=== PATIENT | male | born 1950 | race Caucasian/White ===

== ENCOUNTER 2016-08-22 19:28 | Inpatient (IN) | payer BC ==
[~2016-08-22] VITALS: Ht 172.7 cm; Wt 93.8 kg
[~2016-08-22 19:28] MED LIST: ASPI325T39 PO; VERA120T8 PO
[2016-08-22] MEDS ORDERED: FAMOTIDINE 20MG/102 ML D5W IV STA (19:39)
[2016-08-22] MEDS ORDERED: SODIUM CHLORIDE 0.9% 1000ML 1,000 ML IV STA (19:39)
[2016-08-22] MEDS ORDERED: ONDANSETRON INJ 2 MG/ML 2 ML VIAL IV STA (19:39)
[2016-08-22] MEDS ORDERED: PANTOprazole INJ 40 MG in SYRINGE 0 ML IV ONE (19:45)
--- NOTE | 2016-08-22 19:58 | EMERGENCY ROOM VISIT NOTE ---
History Report prepared by Vicki: Sukhwinder Dunham Under the Supervision of: Dr. Olivier Liu D.O. First contact with patient: 19:33 Chief Complaint: CHEST PAIN Stated Complaint: CHEST/ABD PAIN History of Present Illness The patient is a 66 year old male who presents to the Emergency Room with complaints of constant abdominal discomfort for the pasts few days. The patient describes the discomfort as sharp and severe. He notes that it has been worsening over the past few days. The discomfort is worsened by eating and walking. He also complains of nausea. The patient denies vomiting, shortness of breath, chest pain, or back pain at this time. Source of History: patient Onset: the past few days Position: abdomen Symptom Intensity: severe Quality: sharp Timing: constant, worsening Modifying Factors (Worsening): eating, movement (walking) Associated Symptoms: + nausea, No SOB, No back pain, No chest pain, No vomiting Review of Systems See HPI for pertinent positives & negatives. A total of 10 systems reviewed and were otherwise negative. Past Medical & Surgical Medical Problems: (1) HEADACHE Family History FH: cancer FH: diabetes mellitus FH: gallbladder disease FH: heart disease FH: hypertension Social History Smoking Status: Never Smoker Alcohol Use: occasionally Drug Use: none Marital Status: Housing Status: lives with family Occupation Status: employed Current/Historical Medications Scheduled Ranitidine HCl (Zantac), 150 MG PO DAILY Tamsulosin HCl (Tamsulosin HCl), 0.4 MG PO DAILY Scheduled PRN Aspirin (Aspirin Ec), 325 MG PO UD PRN for Headache Allergies Coded Allergies: No Known Allergies (Verified , 11/16/14) Physical Exam Vital Signs Date Time Temp Pulse Resp B/P Pulse Ox O2 Delivery O2 Flow Rate FiO2 08/22/16 23:49 37.8 116 18 93 Room Air 08/22/16 22:36 38.3 113 18 104/74 92 Room Air 08/22/16 21:40 114 08/22/16 21:33 38.6 113 20 137/86 95 Room Air 08/22/16 19:30 37.3 120 18 169/95 96 Room Air Physical Exam GENERAL: Patient is awake alert in no acute distress patient is resting comfortably and showing no signs of anxiety EYES: The conjunctivae are clear. The pupils are round and reactive. EARS, NOSE, MOUTH AND THROAT: The nose is without any evidence of any deformity. Mucous membranes are moist tongue is midline NECK: The neck is nontender and supple. RESPIRATORY: Normal respiratory effort is noted there is no evidence of wheezing rhonchi or rales CARDIOVASCULAR: Tachycardic rate with regular rhythm noted to oscillation. No definite murmur appreciated. GASTROINTESTINAL: The abdomen is moderately distended but soft. Significant RUQ tenderness to palpation. No lower abdominal tenderness noted. BACK: No midline tenderness or or step-off noted range of motion in flexion extension as well as rotation no signs of muscle spasm noted MUSCULOSKELETAL/EXTREMITIES: There is no evidence of gross deformity full range of motion is noted in the hips and shoulders SKIN: There is no obvious evidence of any rash. There are no petechiae, pallor or cyanosis noted. NEUROLOGIC: Patient is awake alert and oriented x3 Medical Decision & Procedures ER Provider Diagnostic Interpretation: Radiology results as stated below per my review and radiologist interpretation: ABDOMINAL ULTRASOUND, RIGHT UPPER QUADRANT HISTORY: Right upper quadrant abdominal pain.. COMPARISON: Abdominal ultrasound 11/21/2015. FINDINGS: Pancreas: Obscured by overlying bowel gas. Liver: The liver is echogenic consistent with fatty change. Gallbladder: Sludge and small stones within the gallbladder. Gallbladder wall is thickened up to 6 mm. CBD: 6 mm. Right kidney: No hydronephrosis. IMPRESSION: Thickened gallbladder wall with sludge and small stones within the gallbladder. Findings are highly suspicious for acute cholecystitis. Electronically signed by: Omar Hernandez M.D. 08/22/2016 9:29 PM Dictated Date/Time: 08/22/2016 9:27 PM CHEST AND ABDOMEN 2 VIEWS HISTORY: Generalized abdominal pain. COMPARISON: KUB 06/11/2012. Chest 05/26/2012. FINDINGS: The lungs are clear. The cardiomediastinal silhouette is within normal limits. There is no pneumoperitoneum or pneumatosis. The bowel gas pattern is unremarkable. No evidence for bowel obstruction. No renal or ureteral calculi. Stable pelvic calcifications. IMPRESSION: No acute cardiopulmonary process. No evidence for bowel obstruction. Electronically signed by: Omar Hernandez M.D. 08/22/2016 8:53 PM Dictated Date/Time: 08/22/2016 8:51 PM Laboratory Results 08/22/16 19:52 Red Blood Count 5.10, Mean Corpuscular Volume 86.1, Mean Corpuscular Hemoglobin 29.4, Mean Corpuscular Hemoglobin Concent 34.2, Mean Platelet Volume 10.1, Neutrophils (%) (Auto) 83.4, Lymphocytes (%) (Auto) 8.2, Monocytes (%) (Auto) 6.6, Eosinophils (%) (Auto) 1.2, Basophils (%) (Auto) 0.3, Neutrophils # (Auto) 9.48, Lymphocytes # (Auto) 0.93, Monocytes # (Auto) 0.75, Eosinophils # (Auto) 0.14, Basophils # (Auto) 0.03 08/22/16 19:52 Test 08/22/16 19:52 08/22/16 23:45 White Blood Count 11.36 K/uL (4.8-10.8) Red Blood Count 5.10 M/uL (4.7-6.1) Hemoglobin 15.0 g/dL (14.0-18.0) Hematocrit 43.9 % (42-52) Mean Corpuscular Volume 86.1 fL (80-100) Mean Corpuscular Hemoglobin 29.4 pg (25-34) Mean Corpuscular Hemoglobin Concent 34.2 g/dl (32-36) Platelet Count 238 K/uL (130-400) Mean Platelet Volume 10.1 fL (7.4-10.4) Neutrophils (%) (Auto) 83.4 % Lymphocytes (%) (Auto) 8.2 % Monocytes (%) (Auto) 6.6 % Eosinophils (%) (Auto) 1.2 % Basophils (%) (Auto) 0.3 % Neutrophils # (Auto) 9.48 K/uL (1.4-6.5) Lymphocytes # (Auto) 0.93 K/uL (1.2-3.4) Monocytes # (Auto) 0.75 K/uL (0.11-0.59) Eosinophils # (Auto) 0.14 K/uL (0-0.5) Basophils # (Auto) 0.03 K/uL (0-0.2) RDW Standard Deviation 39.3 fL (36.4-46.3) RDW Coefficient of Variation 12.5 % (11.5-14.5) Immature Granulocyte % (Auto) 0.3 % Immature Granulocyte # (Auto) 0.03 K/uL (0.00-0.02) Prothrombin Time 10.7 SECONDS (9.0-12.0) Prothromb Time International Ratio 1.0 (0.9-1.1) Activated Partial Thromboplast Time 23.6 SECONDS (21.0-31.0) Partial Thromboplastin Ratio 0.9 Anion Gap 6.0 mmol/L (3-11) Est Creatinine Clear Calc Drug Dose 82.7 ml/min Estimated GFR () 91.8 Estimated GFR (Non- 79.2 BUN/Creatinine Ratio 12.3 (10-20) Calcium Level 8.8 mg/dl (8.5-10.1) Total Bilirubin 1.7 mg/dl (0.2-1) Direct Bilirubin 1.0 mg/dl (0-0.2) Aspartate Amino Transf (AST/SGOT) 234 U/L (15-37) Alanine Aminotransferase (ALT/SGPT) 338 U/L (12-78) Alkaline Phosphatase 220 U/L (45-117) Total Creatine Kinase 391 U/L (39-308) Creatine Kinase MB 1.2 ng/ml (0.5-3.6) Creatine Kinase MB Ratio 0.3 (0-3.0) Troponin I < 0.015 ng/ml (0-0.045) Total Protein 8.3 gm/dl (6.4-8.2) Albumin 4.2 gm/dl (3.4-5.0) Lipase 8944 U/L (73-393) Urine Color DK YELLOW Urine Appearance CLEAR (CLEAR) Urine pH 7.0 (4.5-7.5) Urine Specific [place] 1.018 (1.000-1.030) Urine Protein NEG (NEG) Urine Glucose (UA) NEG (NEG) Urine Ketones TRACE (NEG) Urine Occult Blood NEG (NEG) Urine Nitrite NEG (NEG) Urine Bilirubin NEG (NEG) Urine Urobilinogen NEG (NEG) Urine Leukocyte Esterase NEG (NEG) Laboratory results per my review. Medications Administered Medications (Trade) Dose Ordered Sig/[place] Route Start Time Stop Time Status Last Admin Dose Admin Ondansetron HCl 4 mg 4 mg NOW STAT IV 08/22/16 19:39 08/22/16 19:41 DC 08/22/16 19:52 4 MG Sodium Chloride (Nss 1000ml) 1,000 ml @ 999 mls/hr Q1H1M STAT IV 08/22/16 19:39 5/12/17 20:39 DC 08/22/16 19:53 999 MLS/HR Famotidine 20 mg 20 mg ONE STAT IV 08/22/16 19:39 08/22/16 19:41 DC 08/22/16 19:53 20 MG Pantoprazole Sodium/Syringe (Protonix Inj/ Syringe) 10 ml @ 5 mls/min NOW ONCE IV 08/22/16 19:45 08/22/16 19:46 DC 08/22/16 19:59 5 MLS/MIN Morphine Sulfate (MoRPHine SULFATE INJ) 4 mg Q15M PRN IV 08/22/16 21:00 09/05/16 20:59 08/22/16 21:38 4 MG Piperacillin Sod/ Tazobactam Sod (Zosyn Iv) 4.5 gm NOW STAT IV 08/22/16 21:34 08/22/16 21:36 DC 08/22/16 21:51 4.5 GM ECG Indication: abdominal pain Rate (beats per minute): 111 Rhythm: sinus tachycardia Findings: no ectopy, other (no acute ST segment abnormality) Comparison ECG Date: increased rate otherwise no change when compared to May 26. ED Course 1931: The patient was evaluated in room C11. A complete history and physical examination were performed. 1938: Ordered Famotidine 20 mg IV, NSS 1000 ml @ 999 mls/hr IV, Zofran Inj 4 mg IV. 1944: Ordered Pantoprazole Sodium 40 mg/ Syringe 10 ml @ 5 mls/min IV. 2099: Ordered Morphine Sulfate 4 mg IV. 2133: Ordered Zosyn Iv 4.5 gm IV. 2144: At this time, I discussed the patient's case with Dr. Harrington - General Surgery [facility] and he agreed with the treatment plan. He also said to discuss the patient's case with Medicine. 2230: At this time, I discussed the patient's case with Dr. Arredondo - Hospitalist [facility] and he agreed to accept the patient for further evaluation. Medical Decision Differential diagnosis: Etiologies such as appendicitis, diverticulitis, PUD, biliary pathology, UTI, pancreatitis, obstruction, mesenteric ischemia, aortic pathology, infections, inflammatory bowel disease, renal colic, as well as others were entertained. Nursing notes reviewed. Patient's previous electronic medical records reviewed. The patient is a 66-year-old male who presented to the emergency department for an evaluation of upper abdominal pain. The patient had upper abdominal pain which began earlier today. The patient states the pain was constant throughout the day. The patient had pain in the past similar to this In the past. Apparently he had a complete workup including a HIDA scan which did not reveal any acute cause for his abdominal discomfort. The patient was found have an elevated white blood cell count as well as abnormal liver function studies. He also had an elevated lipase. The patient's ultrasound appear to be consistent with acute cholecystitis. I discussed the patient's laboratory and radiographic studies with him. He was treated with IV fluids IV pain medicine and IV antiemetics. He was also started on IV antibiotics. I discussed his case with the on-call general surgeon as well as the on-call [facility] hospitalist. They've agreed to evaluate the patient in the emergency department for further management and disposition. Consults Time Called: 2139 Consulting Physician: Dr. Harrington - General Surgery [facility] Returned Call: 2144 At this time, I discussed the patient's case with Dr. Harrington and he agreed with the treatment plan. He also said to discuss the patient's case with Medicine. Additional Consults: Time Called: 2225 Consulted Physician: Dr. Arredondo - Hospitalist [facility] Returned Call: 2230 Additional Comments: At this time, I discussed the patient's case with Dr. Arredondo and he agreed to accept the patient for further evaluation. Impression Primary Impression: Acute cholecystitis Additional Impressions: Pancreatitis Abdominal pain Fever Scribe Attestation The scribe's documentation has been prepared under my direction and personally reviewed by me in its entirety. I confirm that the note above accurately reflects all work, treatment, procedures, and medical decision making performed by me. Departure Information Dispostion Being Evaluated By Hospitalist Mei Acevedo M.D. (PCP) Problem Qualifiers Additional Impressions: Pancreatitis Chronicity: acute Pancreatitis type: unspecified pancreatitis type Acute pancreatitis complication: unspecified Qualified Codes: K85.90 - Acute pancreatitis without necrosis or infection, unspecified Abdominal pain Abdominal location: right upper quadrant Qualified Codes: R10.11 - Right upper quadrant pain Fever Fever type: unspecified Qualified Codes: R50.9 - Fever, unspecified
[2016-08-22] MEDS ORDERED: FLM4 PO (20:00)
[2016-08-22] MEDS ORDERED: ZNTT/150 PO (20:00)
[2016-08-22 20:05] LABS: BASO % 0.3 %; BASO ABS # 0.03 K/uL (0-0.2); COMPLETE YES; EOS % 1.2 %; HEMATOCRIT 43.9 % (42-52); IG% 0.3 %; LYMPH % 8.2 %; LYMPH ABS # 0.93 K/uL (1.2-3.4); MEAN CELL VOLUME 86.1 fL (80-100); MEAN CORPUSCULAR HEMOGLOBIN 29.4 pg (25-34); MEAN CORPUSCULAR HGB CONC 34.2 g/dl (32-36); MEAN PLATELET VOLUME 10.1 fL (7.4-10.4); MONO % 6.6 %; NEUT % 83.4 %; PLATELET COUNT 238 K/uL (130-400); WHITE BLOOD COUNT 11.36 K/uL (4.8-10.8)
[2016-08-22 20:17] LABS: PARTIAL THROMBOPLASTIN RATIO 0.9; PROTHROMBIN TIME (PATIENT) 10.7 SECONDS (9.0-12.0)
[2016-08-22 20:23] LABS: ALT/SGPT 338 U/L (12-78); AST/SGOT 234 U/L (15-37); BLOOD UREA NITROGEN 12 mg/dl (7-18); BUN/CREATININE RATIO 12.3 (10-20); CALCIUM 8.8 mg/dl (8.5-10.1); CARBON DIOXIDE 30 mmol/L (21-32); CHLORIDE 103 mmol/L (98-107); GLUCOSE 95 mg/dl (70-99); POTASSIUM 3.8 mmol/L (3.5-5.1); SODIUM 139 mmol/L (136-145)
[2016-08-22 20:28] LABS: ALKALINE PHOSPHATASE 220 U/L (45-117); CKMB/CK RATIO 0.3 (0-3.0)
--- NOTE | 2016-08-22 20:54 | DIAGNOSTIC IMAGING REPORT ---
CHEST AND ABDOMEN 2 VIEWS HISTORY: Generalized abdominal pain. COMPARISON: KUB 06/11/2012. Chest 05/26/2012. FINDINGS: The lungs are clear. The cardiomediastinal silhouette is within normal limits. There is no pneumoperitoneum or pneumatosis. The bowel gas pattern is unremarkable. No evidence for bowel obstruction. No renal or ureteral calculi. Stable pelvic calcifications. IMPRESSION: No acute cardiopulmonary process. No evidence for bowel obstruction. Electronically signed by: Omar Hernandez M.D. 08/22/2016 8:53 PM Dictated Date/Time: 08/22/2016 8:51 PM
[2016-08-22] MEDS ORDERED: MoRPHine SULFATE 4 MG/ML 1 ML CARP\\VIAL IV PRN (21:00)
--- NOTE | 2016-08-22 21:31 | DIAGNOSTIC IMAGING REPORT ---
ABDOMINAL ULTRASOUND, RIGHT UPPER QUADRANT HISTORY: Right upper quadrant abdominal pain.. COMPARISON: Abdominal ultrasound 11/21/2015. FINDINGS: Pancreas: Obscured by overlying bowel gas. Liver: The liver is echogenic consistent with fatty change. Gallbladder: Sludge and small stones within the gallbladder. Gallbladder wall is thickened up to 6 mm. CBD: 6 mm. Right kidney: No hydronephrosis. IMPRESSION: Thickened gallbladder wall with sludge and small stones within the gallbladder. Findings are highly suspicious for acute cholecystitis. Electronically signed by: Omar Hernandez M.D. 08/22/2016 9:29 PM Dictated Date/Time: 08/22/2016 9:27 PM
[2016-08-22] MEDS ORDERED: PIPERACILLIN/TAZOBACTAM 4.5 GM/100ML D5W IV STA (21:34)
--- NOTE | 2016-08-22 23:23 | History and Physical ---
History & Physical Date & Time of Service: August 22, 2016 at 23:23 Chief Complaint: Chest/Abd Pain Primary Care Physician: Mei Todd M.D. History of Present Illness Source: patient, spouse The patient is a 66-year-old male presents emergency department complaint of right upper quadrant abdominal pain, aggravated by eating, and worsening over the past few days. He was initially assessed for his pain 1 year ago, underwent studies including abdominal ultrasound, HIDA scan, and an EGD, all of which were negative. Since that time, he has had symptoms on and off, but due to worsening symptoms of the past few days, presented to the ED as noted above. Past Medical/Surgical History Medical Problems: (1) HEADACHE Status: Chronic Family History FH: cancer FH: diabetes mellitus FH: gallbladder disease FH: heart disease FH: hypertension Social History Smoking Status: Never Smoker Smokeless Tobacco Use: No Alcohol Use: none Drug Use: none Marital Status: Occupational Status: employed Immunizations History of Influenza Vaccine: Yes History of Tetanus Vaccine?: Yes History of Pneumococcal: Yes History of Hepatitis B Vaccine: No Multi-Drug Resistant Organisms History of MDRO: No Allergies Coded Allergies: No Known Allergies (Verified , 11/16/14) Home Medications Scheduled Ranitidine HCl (Zantac), 150 MG PO DAILY Tamsulosin HCl (Tamsulosin HCl), 0.4 MG PO DAILY Scheduled PRN Aspirin (Aspirin Ec), 325 MG PO UD PRN for Headache Review of Systems Constitutional: No chills, No fatigue, No fever, No problem reported, No sweats , No weakness, No weight loss Eyes: No diplopia, No discharge, No eye pain, No problem reported, No redness, No worsening of vision ENT: No dental problems, No hearing loss, No nasal symptoms, No problem reported, No sore throat, No tinnitus, No trouble swallowing, No unusual epistaxis Respiratory: No cough, No dyspnea at rest, No dyspnea on exertion, No hemoptysis, No problem reported, No shortness of breath, No sputum, No wheezing Cardiovascular: No PND, No chest pain, No claudication, No edema, No orthopnea , No palpitations, No problem reported Abdomen: + nausea, + pain, No GI bleeding, No constipation, No diarrhea, No vomiting Musculoskeletal: + joint pain, + muscle pain, No calf pain, No swelling Genitourinary - Male: No dysuria, No hematuria, No impotence, No lesions, No penile discharge, No problem reported, No urinary frequency, No urinary hesitancy, No urinary incontinence, No urinary retention, No urinary urgency Neurologic: No balance problems, No memory loss, No numbness/tingling, No paralysis, No problem reported, No vertigo, No weakness Psychiatric: No anhedonism, No anxiety, No depression symptoms, No insomnia, No problem reported, No substance abuse Endocrine: No excessive thirst, No excessive urination, No fatigue, No problem reported Hematologic / Lymphatic: No abnormal bleeding/bruising, No clotting problems, No night sweats, No problem reported, No swollen lymph nodes Integumentary: No bleeding, No color change, No itch, No new/changing skin lesions, No problem reported, No rash Allergic / Immunologic: No environmental allergies, No food allergies, No frequent infections, No hives, No pet sensitivities, No poor healing, No problem reported, No prolonged convalescence, No seasonal allergies Physical Exam Vital Signs Date Time Temp Pulse Resp B/P Pulse Ox O2 Delivery O2 Flow Rate FiO2 08/22/16 22:36 38.3 113 18 104/74 92 Room Air 08/22/16 21:40 114 08/22/16 21:33 38.6 113 20 137/86 95 Room Air 08/22/16 19:30 37.3 120 18 169/95 96 Room Air General Appearance: WD/WN, no apparent distress Head: normocephalic, atraumatic Eyes: normal inspection, PERRL, EOMI, sclerae normal ENT: normal ENT inspection, hearing grossly normal, pharynx normal Neck: supple, no adenopathy, thyroid normal, no JVD, no carotid bruits, trachea midline Respiratory/Chest: chest non-tender, lungs clear, normal breath sounds, no respiratory distress, no accessory muscle use Cardiovascular: regular rate, rhythm, no edema, no gallop, no JVD, no murmur, normal peripheral pulses Abdomen/GI: normal bowel sounds, soft, no organomegaly, no pulsatile mass, + tenderness (RUQ of abdomen) Back: normal inspection, no CVA tenderness, no muscle spasm, normal range of motion Extremities/Musculoskelatal: normal inspection, no calf tenderness, normal capillary refill, no pedal edema, normal range of motion, non-tender Neurologic/Psych: 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, no motor/sensory deficits, alert, normal mood/affect, normal reflexes, oriented x 3 Skin: normal color, warm/dry, no rash Lymphatic: no adenopathy Diagnostics Laboratory Results Results Past 24 Hours Test 08/22/16 19:52 Range/Units White Blood Count 11.36 4.8-10.8 K/uL Red Blood Count 5.10 4.7-6.1 M/uL Hemoglobin 15.0 14.0-18.0 g/dL Hematocrit 43.9 42-52 % Mean Corpuscular Volume 86.1 80-100 fL Mean Corpuscular Hemoglobin 29.4 25-34 pg Mean Corpuscular Hemoglobin Concent 34.2 32-36 g/dl Platelet Count 238 130-400 K/uL Mean Platelet Volume 10.1 7.4-10.4 fL Neutrophils (%) (Auto) 83.4 % Lymphocytes (%) (Auto) 8.2 % Monocytes (%) (Auto) 6.6 % Eosinophils (%) (Auto) 1.2 % Basophils (%) (Auto) 0.3 % Neutrophils # (Auto) 9.48 1.4-6.5 K/uL Lymphocytes # (Auto) 0.93 1.2-3.4 K/uL Monocytes # (Auto) 0.75 0.11-0.59 K/uL Eosinophils # (Auto) 0.14 0-0.5 K/uL Basophils # (Auto) 0.03 0-0.2 K/uL RDW Standard Deviation 39.3 36.4-46.3 fL RDW Coefficient of Variation 12.5 11.5-14.5 % Immature Granulocyte % (Auto) 0.3 % Immature Granulocyte # (Auto) 0.03 0.00-0.02 K/uL Prothrombin Time 10.7 9.0-12.0 SECONDS Prothromb Time International Ratio 1.0 0.9-1.1 Activated Partial Thromboplast Time 23.6 21.0-31.0 SECONDS Partial Thromboplastin Ratio 0.9 Sodium Level 139 136-145 mmol/L Potassium Level 3.8 3.5-5.1 mmol/L Chloride Level 103 98-107 mmol/L Carbon Dioxide Level 30 21-32 mmol/L Anion Gap 6.0 3-11 mmol/L Blood Urea Nitrogen 12 7-18 mg/dl Creatinine 1.00 0.60-1.40 mg/dl Est Creatinine Clear Calc Drug Dose 82.7 ml/min Estimated GFR () 91.8 Estimated GFR (Non- 79.2 BUN/Creatinine Ratio 12.3 10-20 Random Glucose 95 70-99 mg/dl Calcium Level 8.8 8.5-10.1 mg/dl Total Bilirubin 1.7 0.2-1 mg/dl Direct Bilirubin 1.0 0-0.2 mg/dl Aspartate Amino Transf (AST/SGOT) 234 15-37 U/L Alanine Aminotransferase (ALT/SGPT) 338 12-78 U/L Alkaline Phosphatase 220 45-117 U/L Total Creatine Kinase 391 39-308 U/L Creatine Kinase MB 1.2 0.5-3.6 ng/ml Creatine Kinase MB Ratio 0.3 0-3.0 Troponin I < 0.015 0-0.045 ng/ml Total Protein 8.3 6.4-8.2 gm/dl Albumin 4.2 3.4-5.0 gm/dl Lipase 8944 73-393 U/L Diagnostic Radiology Patient Name: ELIZ GIBSON JR Unit Number: [id number] Dictated: 08/22/162126 Transcribed: 08/22/162126 [facility] Printed Date/Time: [~ rep prt dt]/[~ rep prt tm] [~ rep ct labl] - [~ rep ct ivnm] [facility] [place] [address] Dictated: 08/22/162126 Transcribed: 08/22/162126 [facility] Printed Date/Time: [~ rep prt dt]/[~ rep prt tm] [~ rep ct labl] - [~ rep ct ivnm] [~ rep ct add3]] ABDOMINAL ULTRASOUND, RIGHT UPPER QUADRANT HISTORY: Right upper quadrant abdominal pain.. COMPARISON: Abdominal ultrasound 11/21/2015. FINDINGS: Pancreas: Obscured by overlying bowel gas. Liver: The liver is echogenic consistent with fatty change. Gallbladder: Sludge and small stones within the gallbladder. Gallbladder wall is thickened up to 6 mm. CBD: 6 mm. Right kidney: No hydronephrosis. IMPRESSION: Thickened gallbladder wall with sludge and small stones within the gallbladder. Findings are highly suspicious for acute cholecystitis. Electronically signed by: Omar Hernandez M.D. 08/22/2016 9:29 PM Dictated Date/Time: 08/22/2016 9:27 PM The status of this report is Signed. Draft = Not yet reviewed or approved by Radiologist. Signed = Reviewed and approved by Radiologist. <AttendingPhy></AttendingPhy> <FamilyPhy>Mei Todd M.D.</FamilyPhy> < PrimaryPhy>Mei Todd M.D.</PrimaryPhy> <UnitNumber>[id number]</UnitNumber> < VisitNumber>[id number]</VisitNumber> <PatientName>ELIZ GIBSON JR</ PatientName> <DateOfBirth>1950</DateOfBirth> <Location>[facility]</Location> < ServiceDate>08/22/16</ServiceDate> <MNE>ESINDI</MNE> <OrderingPhy>Olivier Liu D.O.</OrderingPhy> <OrderingPhyMNE>f rep ord dr dover</OrderingPhyMNE> <DictatingPhyMNE>f rep dict dr dover</DictatingPhyMNE> <CCListMNE>f rep ct mne</ CCListMNE> <AdmittingPhyMNE>f pt admit dr dover</AdmittingPhyMNE> <AttendingPhyMNE >f pt attend dr dover</AttendingPhyMNE> <ConsultingPhyMNE>f pt consult dr dover</ConsultingPhyMNE> <FamilyPhyMNE>f pt fam dr dover</FamilyPhyMNE> <OtherPhyMNE>f pt other dr dover</OtherPhyMNE> < PrimaryPhyMNE>f pt prim care dr dover</PrimaryPhyMNE> <ReferringPhyMNE>f pt referring dr dover</ReferringPhyMNE> Patient Name: ELIZ GIBSON JR Unit Number: [id number] Dictated: 08/22/162050 Transcribed: 08/22/162050 [facility] Printed Date/Time: [~ rep prt dt]/[~ rep prt tm] [~ rep ct labl] - [~ rep ct ivnm] [facility] [place] [address] Dictated: 08/22/162050 Transcribed: 08/22/162050 [facility] Printed Date/Time: [~ rep prt dt]/[~ rep prt tm] [~ rep ct labl] - [~ rep ct ivnm] [~ rep ct add3]] CHEST AND ABDOMEN 2 VIEWS HISTORY: Generalized abdominal pain. COMPARISON: KUB 06/11/2012. Chest 05/26/2012. FINDINGS: The lungs are clear. The cardiomediastinal silhouette is within normal limits. There is no pneumoperitoneum or pneumatosis. The bowel gas pattern is unremarkable. No evidence for bowel obstruction. No renal or ureteral calculi. Stable pelvic calcifications. IMPRESSION: No acute cardiopulmonary process. No evidence for bowel obstruction. Electronically signed by: Omar Hernandez M.D. 08/22/2016 8:53 PM Dictated Date/Time: 08/22/2016 8:51 PM The status of this report is Signed. Draft = Not yet reviewed or approved by Radiologist. Signed = Reviewed and approved by Radiologist. <AttendingPhy></AttendingPhy> <FamilyPhy>Mei Todd M.D.</FamilyPhy> < PrimaryPhy>Mei Todd M.D.</PrimaryPhy> <UnitNumber>[id number]</UnitNumber> < VisitNumber>[id number]</VisitNumber> <PatientName>ELIZ GIBSON JR</ PatientName> <DateOfBirth>1950</DateOfBirth> <Location>[facility]</Location> < ServiceDate>08/22/16</ServiceDate> <MNE>ESINDI</MNE> <OrderingPhy>Olivier Liu D.O.</OrderingPhy> <OrderingPhyMNE>f rep ord dr dover</OrderingPhyMNE> <DictatingPhyMNE>f rep dict dr dover</DictatingPhyMNE> <CCListMNE>f rep ct mne</ CCListMNE> <AdmittingPhyMNE>f pt admit dr dover</AdmittingPhyMNE> <AttendingPhyMNE >f pt attend dr dover</AttendingPhyMNE> <ConsultingPhyMNE>f pt consult dr dover</ConsultingPhyMNE> <FamilyPhyMNE>f pt fam dr dover</FamilyPhyMNE> <OtherPhyMNE>f pt other dr dover</OtherPhyMNE> < PrimaryPhyMNE>f pt prim care dr dover</PrimaryPhyMNE> <ReferringPhyMNE>f pt referring dr dover</ReferringPhyMNE> EKG EKG show ST at 111 bpm, no acute ST-T changes, and no change compared to . Impression Assessment and Plan Acute cholecystitis/SIRS/pancreatitis--patient will be admitted to telemetry unit due to persistent tachycardia. He'll be placed on Zosyn IV, Protonix IV, morphine IV, Zofran IV and IV fluids. He'll be kept nothing by mouth. We will order an MRCP to be done tonight, and we will consult GI and surgery. GERD--change ranitidine 100 mg by mouth daily to pantoprazole 40 mg IV daily. BPH--hold tamsulosin 0.4 mg by mouth daily, and monitor for urinary symptoms. Level of Care Telemetry Advanced Directives Existing Advance Directive: No Existing Living Will: No Existing Power of Chemist Intern: No Resuscitation Status FULL RESUSCITATION VTE Prophylaxis Risk Level: Low Given or contraindicated: SCD's Social Service Consult None Apply
[2016-08-22] MEDS ORDERED: ACETAMINOPHEN IV 100 ML IV PRN (23:30)
[2016-08-22] MEDS ORDERED: ONDANSETRON INJ 2 MG/ML 2 ML VIAL IV PRN (23:30)
[2016-08-22 23:53] LABS: URINE APPEARANCE CLEAR (CLEAR); URINE BILIRUBIN NEG (NEG); URINE COLOR DK YELLOW; URINE NITRITE NEG (NEG); URINE SPECIFIC GRAVITY 1.018 (1.000-1.030); UROBILINOGEN NEG (NEG)
[2016-08-22 23:55] LABS: MANUAL MICROSCOPIC REQUIRED? NO; REVIEW REQ? NO
[2016-08-23] MEDS ORDERED: PIPERACILL/TAZOBAC CONSULT ACTIVE PRN (01:00)
[2016-08-23 01:50] VITALS: BP 130/81; PULSE 112; TEMP 36.8; O2SAT 94; Ht 172.7 cm; Wt 93.8 kg
[2016-08-23] MEDS: NSS + 20MEQ KCL 1000ML 1,000 ML IV SCH ×2 (02:16→09:58)
[2016-08-23] MEDS: PIPERACILL/TAZOBAC IV 3.375 GM in DEXTROSE 5% 100ML 100 ML IV SCH ×3 (05:02→19:39)
--- NOTE | 2016-08-23 07:12 | DIAGNOSTIC IMAGING REPORT ---
MRCP HISTORY: Abnormal ultrasound. Right-sided abdominal pain. abnl lft's, pancreatitis TECHNIQUE: MRCP was performed according to standard departmental protocol without the use of contrast. COMPARISON STUDY: Abdominal ultrasound 08/22/2016. Abdomen and pelvis CT 09/02/2012. FINDINGS: No hepatic or splenic masses. The adrenal glands are unremarkable. Trace perinephric fluid. No hydronephrosis. A 3.6 cm T2 hyperintense lesion within the left kidney which likely represents a cyst. No retroperitoneal lymphadenopathy. Normal caliber common bile duct measuring up to 6 mm. No filling defects within the common bile duct. The main pancreatic duct is normal in course and caliber. There are few tiny cystic structures within the pancreas measuring up to 3 mm. The majority these connect to the main pancreatic duct. 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 Mild gallbladder wall thickening and trace pericholecystic fluid. There are multiple tiny gallstones identified. There is also trace fluid at the second portion of the duodenum and surrounding the pancreatic head. IMPRESSION: 1. A few tiny gallstones with mild gallbladder wall thickening and trace pericholecystic fluid. Findings are suspicious for acute cholecystitis in the appropriate clinical setting. However, this could be due to additional etiologies such as underlying hepatic pathology or acute pancreatitis. 2. There is also a small amount of fluid surrounding the second portion of the duodenum and pancreatic head. This could be due to an acute pancreatitis. Correlate with pancreatic enzymes. 3. Trace perinephric edema. 4. There are few tiny cystic foci seen scattered throughout the pancreas measuring up to 3 mm. These could represent small dilated acini in the setting of chronic pancreatitis versus small side branch intraductal papillary mucinous neoplasms. 5. The common bile duct is top normal measuring 6 mm. No definite stones identified within the common bile duct. Electronically signed by: Omar Hernandez M.D. 08/23/2016 7:11 AM Dictated Date/Time: 08/23/2016 7:01 AM
[2016-08-23 07:49] VITALS: BP 128/76; PULSE 81; TEMP 37; O2SAT 94
[2016-08-23 07:56] LABS: BASO % 0.3 %; BASO ABS # 0.02 K/uL (0-0.2); COMPLETE YES; EOS % 1.1 %; IG% 0.1 %; LYMPH % 18.1 %; MEAN CELL VOLUME 86.5 fL (80-100); MEAN CORPUSCULAR HEMOGLOBIN 28.4 pg (25-34); MEAN CORPUSCULAR HGB CONC 32.8 g/dl (32-36); MEAN PLATELET VOLUME 10.1 fL (7.4-10.4); MONO % 11.4 %; PLATELET COUNT 203 K/uL (130-400); RED BLOOD COUNT 4.51 M/uL (4.7-6.1); WHITE BLOOD COUNT 7.19 K/uL (4.8-10.8)
[2016-08-23 08:05] LABS: INR 1.1 (0.9-1.1); PROTHROMBIN TIME (PATIENT) 11.6 SECONDS (9.0-12.0)
[2016-08-23 08:31] LABS: BUN/CREATININE RATIO 11.6 (10-20); CALCIUM 8.2 mg/dl (8.5-10.1); CREATININE 0.98 mg/dl (0.60-1.40); MAGNESIUM 2.1 mg/dl (1.8-2.4); POTASSIUM 3.5 mmol/L (3.5-5.1)
[2016-08-23] MEDS: PANTOprazole INJ 40 MG in SYRINGE 0 ML IV SCH (11:06)
[2016-08-23 11:47] VITALS: BP 147/76; PULSE 78; TEMP 36.3; O2SAT 97
--- NOTE | 2016-08-23 11:54 | Surgery Consultation ---
Consultation Date of Consultation: August 23, 2016. Attending Physician: Rhett Chapman MD Past Medical/Surgical History Medical Problems: (1) Abdominal pain Status: Acute (2) Acute cholecystitis Status: Acute (3) Fever Status: Acute (4) Pancreatitis Status: Acute Family History FH: cancer FH: diabetes mellitus FH: gallbladder disease FH: heart disease FH: hypertension Social History Smoking Status: Former Smoker Smokeless Tobacco Use: No Alcohol Use: casual use. denies heavy use Drug Use: none Marital Status: Housing Status: lives with family Occupation Status: employed Allergies Coded Allergies: No Known Allergies (Verified , 11/16/14) Home Medications Scheduled Ranitidine HCl (Zantac), 150 MG PO DAILY Tamsulosin HCl (Tamsulosin HCl), 0.4 MG PO DAILY Scheduled PRN Aspirin (Aspirin Ec), 325 MG PO UD PRN for Headache Current Inpatient Medications Current Inpatient Medications Medications (Trade) Dose Ordered Sig/[place] Route Start Time Stop Time Status Last Admin Dose Admin Potassium Chloride/Sodium Chloride (Nss + 20meq KCl 1000ml) 1,000 ml @ 125 mls/hr Q8H IV 08/23/16 02:00 09/22/16 01:59 08/23/16 09:58 125 MLS/HR Ondansetron HCl 4 mg 4 mg Q6H PRN IV 08/22/16 23:30 09/21/16 23:29 Acetaminophen (Ofirmev Iv) 100 ml @ 400 mls/hr Q8H PRN IV 08/22/16 23:30 09/21/16 23:29 Morphine Sulfate (MoRPHine SULFATE INJ) 2 mg Q2H PRN IV 08/22/16 23:30 09/05/16 23:29 Morphine Sulfate 4 mg 4 mg Q2H PRN IV 08/22/16 23:30 09/05/16 23:29 Pantoprazole Sodium 40 mg/ Syringe 10 ml @ 5 mls/min DAILY@11 IV 08/23/16 11:00 09/22/16 10:59 08/23/16 11:06 5 MLS/MIN Piperacillin Sod/ Tazobactam Sod/ Dextrose (Zosyn Iv/D5 100ml) 115 ml @ 28.75 mls/ hr Q8H IV 08/23/16 04:00 09/02/16 03:59 08/23/16 11:41 28.75 MLS/HR Piperacillin Sod/ Tazobactam Sod (Consult) 1 ea UD PRN N/A 08/23/16 01:00 09/22/16 00:59 Review of Systems Abdomen: + nausea, + pain, + vomiting Physical Exam Date Time Temp Pulse Resp B/P Pulse Ox O2 Delivery O2 Flow Rate FiO2 08/23/16 11:47 36.3 78 18 147/76 97 Room Air 08/23/16 08:00 Room Air 08/23/16 07:49 37.0 81 18 128/76 94 Room Air 08/23/16 04:00 Room Air 08/23/16 01:50 36.8 112 18 130/81 94 Room Air 08/22/16 23:49 37.8 116 18 93 Room Air 08/22/16 22:36 38.3 113 18 104/74 92 Room Air 08/22/16 21:40 114 08/22/16 21:33 38.6 113 20 137/86 95 Room Air 08/22/16 19:30 37.3 120 18 169/95 96 Room Air General Appearance: no apparent distress Head: normocephalic, atraumatic Eyes: EOMI ENT: hearing grossly normal Neck: supple, no JVD Abdomen/GI: soft, + pertinent finding (epigastric ttp. no g/r/r) Neurologic/Psych: alert, oriented x 3 Skin: normal color, warm/dry, no rash Laboratory Results Last 24 Hours Test 08/22/16 19:52 08/22/16 23:45 08/23/16 07:43 White Blood Count 11.36 K/uL 7.19 K/uL Red Blood Count 5.10 M/uL 4.51 M/uL Hemoglobin 15.0 g/dL 12.8 g/dL Hematocrit 43.9 % 39.0 % Mean Corpuscular Volume 86.1 fL 86.5 fL Mean Corpuscular Hemoglobin 29.4 pg 28.4 pg Mean Corpuscular Hemoglobin Concent 34.2 g/dl 32.8 g/dl Platelet Count 238 K/uL 203 K/uL Mean Platelet Volume 10.1 fL 10.1 fL Neutrophils (%) (Auto) 83.4 % 69.0 % Lymphocytes (%) (Auto) 8.2 % 18.1 % Monocytes (%) (Auto) 6.6 % 11.4 % Eosinophils (%) (Auto) 1.2 % 1.1 % Basophils (%) (Auto) 0.3 % 0.3 % Neutrophils # (Auto) 9.48 K/uL 4.96 K/uL Lymphocytes # (Auto) 0.93 K/uL 1.30 K/uL Monocytes # (Auto) 0.75 K/uL 0.82 K/uL Eosinophils # (Auto) 0.14 K/uL 0.08 K/uL Basophils # (Auto) 0.03 K/uL 0.02 K/uL RDW Standard Deviation 39.3 fL 40.3 fL RDW Coefficient of Variation 12.5 % 12.7 % Immature Granulocyte % (Auto) 0.3 % 0.1 % Immature Granulocyte # (Auto) 0.03 K/uL 0.01 K/uL Prothrombin Time 10.7 SECONDS 11.6 SECONDS Prothromb Time International Ratio 1.0 1.1 Activated Partial Thromboplast Time 23.6 SECONDS 26.5 SECONDS Partial Thromboplastin Ratio 0.9 1.0 Sodium Level 139 mmol/L 139 mmol/L Potassium Level 3.8 mmol/L 3.5 mmol/L Chloride Level 103 mmol/L 107 mmol/L Carbon Dioxide Level 30 mmol/L 25 mmol/L Anion Gap 6.0 mmol/L 7.0 mmol/L Blood Urea Nitrogen 12 mg/dl 11 mg/dl Creatinine 1.00 mg/dl 0.98 mg/dl Est Creatinine Clear Calc Drug Dose 82.7 ml/min 83.7 ml/min Estimated GFR () 91.8 94.1 Estimated GFR (Non- 79.2 81.2 BUN/Creatinine Ratio 12.3 11.6 Random Glucose 95 mg/dl 96 mg/dl Calcium Level 8.8 mg/dl 8.2 mg/dl Total Bilirubin 1.7 mg/dl 1.3 mg/dl Direct Bilirubin 1.0 mg/dl 0.3 mg/dl Aspartate Amino Transf (AST/SGOT) 234 U/L 166 U/L Alanine Aminotransferase (ALT/SGPT) 338 U/L 312 U/L Alkaline Phosphatase 220 U/L 167 U/L Total Creatine Kinase 391 U/L Creatine Kinase MB 1.2 ng/ml Creatine Kinase MB Ratio 0.3 Troponin I < 0.015 ng/ml Total Protein 8.3 gm/dl 6.5 gm/dl Albumin 4.2 gm/dl 3.2 gm/dl Lipase 8944 U/L 3166 U/L Urine Color DK YELLOW Urine Appearance CLEAR Urine pH 7.0 Urine Specific [place] 1.018 Urine Protein NEG Urine Glucose (UA) NEG Urine Ketones TRACE Urine Occult Blood NEG Urine Nitrite NEG Urine Bilirubin NEG Urine Urobilinogen NEG Urine Leukocyte Esterase NEG Magnesium Level 2.1 mg/dl Amylase Level 318 U/L Assessment & Plan 1. pancreatitis. presumed gallstone however MRCP shows abnormality of pancreas/ ? pancreatic neoplasm lipase approx 9000 will need to tx pancreatitis conservatively. will need GI consult for endoscopic US/possible brushings/biopsies will obtain ca 19-9 after pancreatitis resolves, may need lap stefanie however we must better workup these pancreatic abnormalities. fill follow along. discussed with primary team
[2016-08-23] MEDS: POTASSIUM CHLORIDE INJ 20 MEQ in LACTATED RINGER'S 1000ML 1,000 ML IV SCH ×2 (14:25→19:39)
[2016-08-23 15:45] VITALS: BP 149/70; PULSE 84; TEMP 36.9; O2SAT 95
[2016-08-23] MEDS: MoRPHine SULFATE 2 MG/ML CARP IV PRN (16:53)
[2016-08-23 19:10] VITALS: BP 126/76; PULSE 88; TEMP 36.9; O2SAT 95
--- NOTE | 2016-08-23 21:07 | Progress Note ---
Subjective Date of Service: August 23, 2016. Subjective Pt evaluation today including: conversation w/ patient, conversation w/ family (, son at bedside), physical exam, chart review, lab review, review of studies, conversation w/ consultant [employer]. vice president [employer] (ex ) (GI, gen surg), review of inpatient medication list Pain: pain, upper abd - improved PO Intake: npo Voiding: no voiding problems tele stable overnight no issues denies nausea/emesis abd pain improved no fevers or chills Problem List Medical Problems: (1) Abdominal pain Status: Acute (2) Acute cholecystitis Status: Acute (3) Fever Status: Acute (4) Pancreatitis Status: Acute Review of Systems Respiratory: No dyspnea on exertion, No shortness of breath Cardiac: No PND, No chest pain, No orthopnea Abdomen: + pain, + see HPI, No GI bleeding Objective Vital Signs Date Time Temp Pulse Resp B/P Pulse Ox O2 Delivery O2 Flow Rate FiO2 08/23/16 20:00 Room Air 08/23/16 19:10 36.9 88 16 126/76 95 Room Air 08/23/16 16:00 Room Air 08/23/16 15:45 36.9 84 16 149/70 95 Room Air 08/23/16 12:00 Room Air 08/23/16 11:47 36.3 78 18 147/76 97 Room Air 08/23/16 08:00 Room Air 08/23/16 07:49 37.0 81 18 128/76 94 Room Air 08/23/16 04:00 Room Air 08/23/16 01:50 36.8 112 18 130/81 94 Room Air 08/22/16 23:49 37.8 116 18 93 Room Air 08/22/16 22:36 38.3 113 18 104/74 92 Room Air 08/22/16 21:40 114 08/22/16 21:33 38.6 113 20 137/86 95 Room Air Physical Exam General Appearance: WD/WN, no apparent distress Eyes: sclerae normal (no icterus) ENT: pharynx normal Neck: no JVD Respiratory/Chest: lungs clear, no respiratory distress, no accessory muscle use Cardiovascular: regular rate, rhythm, no gallop, no JVD, no murmur Abdomen: normal bowel sounds, soft, no organomegaly, + tenderness (RUQ/ epigastric region - mild ) Extremities: no pedal edema Neurologic/Psychiatric: alert, oriented x 3 Skin: normal color Laboratory Results Last 24 Hours Test 08/22/16 23:45 08/23/16 07:43 08/23/16 12:36 Urine Color DK YELLOW Urine Appearance CLEAR Urine pH 7.0 Urine Specific [place] 1.018 Urine Protein NEG Urine Glucose (UA) NEG Urine Ketones TRACE Urine Occult Blood NEG Urine Nitrite NEG Urine Bilirubin NEG Urine Urobilinogen NEG Urine Leukocyte Esterase NEG White Blood Count 7.19 K/uL Red Blood Count 4.51 M/uL Hemoglobin 12.8 g/dL Hematocrit 39.0 % Mean Corpuscular Volume 86.5 fL Mean Corpuscular Hemoglobin 28.4 pg Mean Corpuscular Hemoglobin Concent 32.8 g/dl Platelet Count 203 K/uL Mean Platelet Volume 10.1 fL Neutrophils (%) (Auto) 69.0 % Lymphocytes (%) (Auto) 18.1 % Monocytes (%) (Auto) 11.4 % Eosinophils (%) (Auto) 1.1 % Basophils (%) (Auto) 0.3 % Neutrophils # (Auto) 4.96 K/uL Lymphocytes # (Auto) 1.30 K/uL Monocytes # (Auto) 0.82 K/uL Eosinophils # (Auto) 0.08 K/uL Basophils # (Auto) 0.02 K/uL RDW Standard Deviation 40.3 fL RDW Coefficient of Variation 12.7 % Immature Granulocyte % (Auto) 0.1 % Immature Granulocyte # (Auto) 0.01 K/uL Prothrombin Time 11.6 SECONDS Prothromb Time International Ratio 1.1 Activated Partial Thromboplast Time 26.5 SECONDS Partial Thromboplastin Ratio 1.0 Sodium Level 139 mmol/L Potassium Level 3.5 mmol/L Chloride Level 107 mmol/L Carbon Dioxide Level 25 mmol/L Anion Gap 7.0 mmol/L Blood Urea Nitrogen 11 mg/dl Creatinine 0.98 mg/dl Est Creatinine Clear Calc Drug Dose 83.7 ml/min Estimated GFR () 94.1 Estimated GFR (Non- 81.2 BUN/Creatinine Ratio 11.6 Random Glucose 96 mg/dl Calcium Level 8.2 mg/dl Magnesium Level 2.1 mg/dl Total Bilirubin 1.3 mg/dl Direct Bilirubin 0.3 mg/dl Aspartate Amino Transf (AST/SGOT) 166 U/L Alanine Aminotransferase (ALT/SGPT) 312 U/L Alkaline Phosphatase 167 U/L Total Protein 6.5 gm/dl Albumin 3.2 gm/dl Amylase Level 318 U/L Lipase 3166 U/L Assessment and Plan 66yo male - 1. pancreatitis, likely due to gallstones - continue conservative Rx with fluids, bowel rest, pain control. Change fluids from NS to LR and increase the fluid rate to 200cc/hr. Pt drinks etoh but seldomly and not heavily. Triglycerides in 2014 were minimally elevated (just above 150). Calcium normal. Repeat lipase AM. 2. acute cholecystitis - continue IV abx, bowel rest, IVF, pain control. MRCP w/o evidence of obvious choledocholithiasis. Appreciate gen surg consultation. LFTs already trending down. Repeat in AM. GI consult to determine if pre-op ERCP is needed but again MRCP w/o obvious choledocholithiasis. 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 GI consultation to determine if outpatient endoscopic u/s will be needed and/or additional imaging in future. 4. BPH - cont flomax. 5. FEN - NPO; change fluids to LR and run at 200cc/hr until tomorrow. Repeat chemistries in AM. 6. DVT proph - add heparin TID. 7. GERD - IV PPI for now. updated at bedside leave on tele overnight; likely med/surg tomorrow Continued [facility] stay due to: inadequate po fluid intake, inadequate oral pain control, multiple IV medications needed Discharge planning: home
[2016-08-23] MEDS: HEPARIN SOD 5000 UNIT/0.5 ML CARP SQ SCH (21:34)
[2016-08-23 23:57] VITALS: BP 120/74; PULSE 90; TEMP 37; O2SAT 97
[2016-08-24] VITALS (9 sets, daily range): BP systolic 124–164; BP diastolic 72–97; PULSE 81–95; TEMP 36.2–37.2; O2SAT 94–99
[2016-08-24] MEDS: POTASSIUM CHLORIDE INJ 20 MEQ in LACTATED RINGER'S 1000ML 1,000 ML IV SCH ×5 (00:18→22:11)
[2016-08-24] MEDS: PIPERACILL/TAZOBAC IV 3.375 GM in DEXTROSE 5% 100ML 100 ML IV SCH ×3 (05:03→20:18)
[2016-08-24] MEDS: HEPARIN SOD 5000 UNIT/0.5 ML CARP SQ SCH ×3 (05:03→22:31)
[2016-08-24 06:59] LABS: BASO % 0.7 %; BASO ABS # 0.04 K/uL (0-0.2); COMPLETE YES; EOS % 5.1 %; HEMATOCRIT 37.9 % (42-52); IG% 0.2 %; LYMPH % 21.8 %; LYMPH ABS # 1.32 K/uL (1.2-3.4); MEAN CELL VOLUME 87.5 fL (80-100); MEAN CORPUSCULAR HEMOGLOBIN 29.3 pg (25-34); MEAN CORPUSCULAR HGB CONC 33.5 g/dl (32-36); MEAN PLATELET VOLUME 9.6 fL (7.4-10.4); MONO % 8.3 %; NEUT % 63.9 %; PLATELET COUNT 183 K/uL (130-400); RED BLOOD COUNT 4.33 M/uL (4.7-6.1); WHITE BLOOD COUNT 6.05 K/uL (4.8-10.8)
[2016-08-24 07:43] LABS: BUN/CREATININE RATIO 10.7 (10-20); CALCIUM 8.3 mg/dl (8.5-10.1); CREATININE 0.86 mg/dl (0.60-1.40); POTASSIUM 4.1 mmol/L (3.5-5.1)
[2016-08-24] MEDS: MoRPHine SULFATE 4 MG/ML 1 ML CARP\\VIAL IV PRN ×2 (09:39→15:55)
[2016-08-24] MEDS: PANTOprazole INJ 40 MG in SYRINGE 0 ML IV SCH (11:46)
--- NOTE | 2016-08-24 14:49 | GASTROINTESTINAL CONSULTATION ---
DATE OF CONSULTATION: 08/24/2016 INDICATION: Gallstone pancreatitis. HISTORY OF PRESENT ILLNESS: Mr. Ramsey is a 66-year-old male who presents with 10/10 epigastric pain following a meal. This occurred late last week and was admitted through the Emergency Room with gallstone pancreatitis on Thursday evening. The patient had a prior investigation, partly by me, by upper endoscopy and office examination, although I do not currently have the details of these records available for review. He also had a workup prior to seeing me last summer, for gallbladder symptoms which had been intermittently present for about a year or so. Generally, this produced nausea and bloating sensation, although this level of intensity has never been experienced by the patient. PAST MEDICAL HISTORY: The patient reports no significant past medical or surgical history. He is on Flomax for BPH. ALLERGIES: He has no known drug allergies. CURRENT MEDICATIONS: At home include ranitidine 150 mg p.r.n. as well as tamsulosin daily. He also takes an occasional aspirin for headaches. SOCIAL HISTORY: The patient is with children. Works in construction. He drinks perhaps a couple alcoholic beverages weekly, never too excess and denies tobacco usage. FAMILY HISTORY: Significant for cancer, diabetes and mother with gallbladder disease. There is also hypertension and coronary artery disease, described by the patient. REVIEW OF SYSTEMS: Otherwise noncontributory based on 14-point exam except for mentioned above. The patient denies any odynophagia, dysphagia, weight loss, nausea, vomiting in a chronic pattern, melena or bright red blood per rectum, diarrhea or constipation. Historically, the patient has not had any pattern of weight loss associated with these intermittent symptoms. He also cannot identify a specific type of food or volume of food, but generally if this is to occur, it will happen within 10-20 minutes of ingestion. ALLERGIES: He has no known drug allergies. PHYSICAL EXAMINATION: VITAL SIGNS: On admission, the patient was afebrile at 37.3, although a couple hours later was found to be 38.6. He is 95% on room air, blood pressure was 169/95 on admission, but this has subsequently diminished into the normal range, but heart rate was 120, respirations 18. GENERAL: The patient is awake, alert and oriented x3, accompanied by his family members and spouse. He is resting comfortably in bed and at the present time his abdominal pain is significantly diminished compared to his presentation, at which time it was 10/10. He has been taking ice chips, but is otherwise NPO without any liquid or solid food. The patient is awake, alert and oriented x3. HEENT: Sclerae are anicteric, conjunctiva moist. Oral mucosa moist. HEART: Normal S1, S2. LUNGS: Clear to auscultation without rales, rhonchi or wheezes. ABDOMEN: Soft, mildly tender in the epigastrium without rebound or guarding. There is no evidence of Cedillo sign. There is no evidence for ascites or shifting dullness. I do not appreciate abdominal bruits. EXTREMITIES: Without clubbing, cyanosis or edema. RECTAL: Deferred at this time. LABORATORY STUDIES: On admission, white count was 11.3, hemoglobin 15.0, MCV 86, platelets 238,000. INR 1.0. His chemistries include normal potassium 3.8, BUN and creatinine of 12 and 1.1. His LFTs on admission showed a bilirubin of 1.7 with a direct fraction of 1.08, AST 234, ALT 338, alkaline phosphatase 220, creatinine kinase 391, troponins are less than 0.015, albumin is normal at 4.2, his lipase was elevated at 8944. IMAGING STUDIES ON ADMISSION: Revealed a gallbladder ultrasound study which suggested a thickened gallbladder wall with sludge and small stones within the gallbladder that are suspicious for acute cholecystitis. The liver had a fatty echogenic texture and this is consistent with an November 2015 ultrasound. The common bile duct is 6 mm. A chest and abdomen x-ray, the latter was unrevealing for bowel obstruction or acute coronary process. The MRCP revealed a few tiny stones with mild gallbladder wall thickening and mild pericholecystic fluid. This was suspicious for acute cholecystitis. There was a small amount of fluid around the duodenum and pancreatic head and this likely reflects the acute pancreatitis experienced. There was mild perinephric edema. A few tiny cystic foci were seen in the pancreas throughout, the largest up to 3 mm and this may suggest a side branch IPMN versus perhaps some chronic ____ chronic pancreatitis setting. Common bile duct was top normal at 6 mm, although there were no stones identified in the common bile duct. Subsequent laboratory studies show that the lipase today is down to 1305. His alkaline phosphatase is down to 146, ALT down to 208 and AST is 56. Direct and total bilirubin are also in the normal range of 0.9 and 0.2, BUN and creatinine remain stable and normal at 9 and 0.9. IMPRESSION: The patient with a first time attack of pancreatitis, presumably based on the gallstones that were present and LFT pattern and pancreatic enzyme pattern which was an acute rise and fall. There has been no chronic weight loss despite his 1 to 2 year history of intermittent symptoms. Prior imaging studies available in the [facility] EMR from 2012 showed an upper GI series that showed a small hiatal hernia with a suggestion of a high grade bowel obstruction with a KUB recommended. On 06/11/2012, this was a nonspecific flat plate. Abdominal CT on 09/02/2012 revealed and in followup to a May 2012 suggested an evidence of acute appendicitis in May 2012 and the pancreas, gallbladder, spleen that had normal appearance and left parapelvic cyst at 2.5 cm in 2012. In August 2012, there was evidence of a fatty right inguinal hernia. There was no evidence for appendicitis or bowel obstruction with evidence of colonic diverticulosis without diverticulitis and no pathologic abnormality, the pancreas and stomach without focal lesions and again a left parapelvic cyst was noted. The prostate was irregularly sized and enlarged at that time. In November 2015, an abdominal ultrasound revealed a fatty appearing echotexture to the liver, common bile duct of 4 mm without ductal dilation and a gallbladder that appeared normal. HIDA scan in 12/13/2015 revealed no evidence for cystic duct obstruction with an ejection fraction of 97%. IMPRESSION: First time attack of gallstone pancreatitis by features mentioned above, prior workup described above. There are changes on the MRCP that suggests tiny small cystic structures that may represent side branch intraductal papillary mucinous neoplasm, but I would not expect these to represent the source of the patient's liver test and may represent part of the acute inflammatory process, although overall, the pancreas is not significantly adversely affected. There is no evidence for retained common bile duct stones and his LFT pattern is also trending down, which could suggest either a passed stone or stones or debris moving out of an obstructive pattern. However, the pattern of the patient's LFTs are although elevated, need to be tracked. If these persist, then I would recommend liver markers to exclude other chronic liver disorders such as PBC, PSC, autoimmune hepatitis and viral markers as well as ceruloplasmin. The timing of the gallbladder surgery will be discussed with Dr. Harrington. Ideally, would like some of the clinical and biochemical pancreatitis to resolve; however, it may be prudent at that time to consider an intraoperative cholangiogram to ensure that there is no other causes for the above labs. In addition, I would follow LFTs and trend them until they are normal or at baseline. I do not see liver tests in the medical record prior to this admission and will check my office records along with the upper endoscopy report and its recommendations as well as any office recommendations made, last fall. The absence of chronic weight loss is reassuring, regarding these structures in the pancreas once the gallbladder is addressed and pancreatitis has resolved, it may be reasonable to repeat a CT scan with oral and IV contrast dedicated to the pancreas to assess for persistence of these structures. The CA 19-9 is pending at this time. At the present time clinically, the patient does not feel hungry and therefore would just maintain ice chips, on a p.r.n. basis. His diet can be slowly advanced with an endpoint of low fat diet, once he begins to feel hungry. All questions answered for the patient and his family. Thank you for allowing me to participate in this patient's care. VICKY
[2016-08-24] MEDS ORDERED: TAMSULOSIN HCL 0.4 MG CAP PO ONE (16:45)
--- NOTE | 2016-08-24 16:47 | Surgery Progress Note ---
Surgery Progress Note Date of Service August 24, 2016. Subjective clinically improving. pain much better. no nausea. no appetite yet Objective Vital Signs: Date Time Temp Pulse Resp B/P Pulse Ox O2 Delivery O2 Flow Rate FiO2 08/24/16 15:31 37.2 82 16 164/90 97 Room Air 08/24/16 11:07 36.2 81 19 143/76 96 Room Air 08/24/16 07:47 36.9 85 17 148/72 96 Room Air 08/24/16 04:00 Room Air 08/24/16 03:17 37.1 81 20 124/77 94 Room Air 08/23/16 23:59 Room Air 08/23/16 23:57 37.0 90 18 120/74 97 Room Air 08/23/16 20:00 Room Air 08/23/16 19:10 36.9 88 16 126/76 95 Room Air General Appearance: no apparent distress Head: atraumatic Neck: supple Respiratory/Chest: no respiratory distress, no accessory muscle use Abdomen: non tender, non distended, soft Extremities: normal inspection Laboratory Results: Results Past 24 Hours Test 08/24/16 06:45 Range/Units White Blood Count 6.05 4.8-10.8 K/uL Red Blood Count 4.33 4.7-6.1 M/uL Hemoglobin 12.7 14.0-18.0 g/dL Hematocrit 37.9 42-52 % Mean Corpuscular Volume 87.5 80-100 fL Mean Corpuscular Hemoglobin 29.3 25-34 pg Mean Corpuscular Hemoglobin Concent 33.5 32-36 g/dl Platelet Count 183 130-400 K/uL Mean Platelet Volume 9.6 7.4-10.4 fL Neutrophils (%) (Auto) 63.9 % Lymphocytes (%) (Auto) 21.8 % Monocytes (%) (Auto) 8.3 % Eosinophils (%) (Auto) 5.1 % Basophils (%) (Auto) 0.7 % Neutrophils # (Auto) 3.87 1.4-6.5 K/uL Lymphocytes # (Auto) 1.32 1.2-3.4 K/uL Monocytes # (Auto) 0.50 0.11-0.59 K/uL Eosinophils # (Auto) 0.31 0-0.5 K/uL Basophils # (Auto) 0.04 0-0.2 K/uL RDW Standard Deviation 40.8 36.4-46.3 fL RDW Coefficient of Variation 12.6 11.5-14.5 % Immature Granulocyte % (Auto) 0.2 % Immature Granulocyte # (Auto) 0.01 0.00-0.02 K/uL Sodium Level 140 136-145 mmol/L Potassium Level 4.1 3.5-5.1 mmol/L Chloride Level 108 98-107 mmol/L Carbon Dioxide Level 23 21-32 mmol/L Anion Gap 9.0 3-11 mmol/L Blood Urea Nitrogen 9 7-18 mg/dl Creatinine 0.86 0.60-1.40 mg/dl Est Creatinine Clear Calc Drug Dose 97.5 ml/min Estimated GFR () 106.2 Estimated GFR (Non- 91.6 BUN/Creatinine Ratio 10.7 10-20 Random Glucose 73 70-99 mg/dl Calcium Level 8.3 8.5-10.1 mg/dl Total Bilirubin 0.9 0.2-1 mg/dl Direct Bilirubin 0.2 0-0.2 mg/dl Aspartate Amino Transf (AST/SGOT) 56 15-37 U/L Alanine Aminotransferase (ALT/SGPT) 208 12-78 U/L Alkaline Phosphatase 146 45-117 U/L Total Protein 6.8 6.4-8.2 gm/dl Albumin 3.3 3.4-5.0 gm/dl Lipase 1305 73-393 U/L Assessment & Plan clinically improving lipase dramatically improved. LFT"s all improved appreciate GI input prob OK to proceed with lap stefanie tomorrow since clinically and labs are improved will perform IOC GI can w/u the pancreatic cysts as out-pt. discussed risks of surgery ( bleeding/infection/dvt/pe/mi/injury to bile ducts or bowel etc...)...answered questions. ok to proceed tomorrow.
[2016-08-25] VITALS (12 sets, daily range): BP systolic 125–163; BP diastolic 69–86; PULSE 85–109; TEMP 36.3–37.2; O2SAT 92–97
--- NOTE | 2016-08-25 00:18 | Progress Note ---
Subjective Date of Service: August 24, 2016. Subjective Pt evaluation today including: conversation w/ patient, conversation w/ family (son at bedside), physical exam, chart review, lab review, conversation w/ client development consultant (GI), review of inpatient medication list Pain: minimal abd pain PO Intake: npo Voiding: no voiding problems tele stable patient feels much better no nausea, emesis minimal flatus but denies bloating pain improved Problem List Medical Problems: (1) Abdominal pain Status: Acute (2) Acute cholecystitis Status: Acute (3) Fever Status: Acute (4) Pancreatitis Status: Acute Review of Systems Constitutional: No chills, No fever Respiratory: No dyspnea on exertion, No shortness of breath Cardiac: No PND, No chest pain, No edema, No orthopnea Objective Vital Signs Date Time Temp Pulse Resp B/P Pulse Ox O2 Delivery O2 Flow Rate FiO2 08/24/16 23:55 36.8 87 18 147/75 95 Room Air 08/24/16 20:30 Room Air 08/24/16 19:31 36.9 95 18 154/97 97 Room Air 08/24/16 16:00 99 Room Air 08/24/16 15:31 37.2 82 16 164/90 97 Room Air 08/24/16 12:00 99 Room Air 08/24/16 11:07 36.2 81 19 143/76 96 Room Air 08/24/16 08:00 99 Room Air 08/24/16 07:47 36.9 85 17 148/72 96 Room Air 08/24/16 04:00 Room Air 08/24/16 03:17 37.1 81 20 124/77 94 Room Air Physical Exam General Appearance: no apparent distress Eyes: sclerae normal ENT: pharynx normal Neck: no JVD Respiratory/Chest: lungs clear, no respiratory distress, no accessory muscle use Cardiovascular: regular rate, rhythm, no gallop, no JVD, no murmur Abdomen: normal bowel sounds, soft, no organomegaly, + tenderness (minimal, RUQ & high epigastric region) Extremities: no pedal edema Laboratory Results Last 24 Hours Test 08/24/16 06:45 White Blood Count 6.05 K/uL Red Blood Count 4.33 M/uL Hemoglobin 12.7 g/dL Hematocrit 37.9 % Mean Corpuscular Volume 87.5 fL Mean Corpuscular Hemoglobin 29.3 pg Mean Corpuscular Hemoglobin Concent 33.5 g/dl Platelet Count 183 K/uL Mean Platelet Volume 9.6 fL Neutrophils (%) (Auto) 63.9 % Lymphocytes (%) (Auto) 21.8 % Monocytes (%) (Auto) 8.3 % Eosinophils (%) (Auto) 5.1 % Basophils (%) (Auto) 0.7 % Neutrophils # (Auto) 3.87 K/uL Lymphocytes # (Auto) 1.32 K/uL Monocytes # (Auto) 0.50 K/uL Eosinophils # (Auto) 0.31 K/uL Basophils # (Auto) 0.04 K/uL RDW Standard Deviation 40.8 fL RDW Coefficient of Variation 12.6 % Immature Granulocyte % (Auto) 0.2 % Immature Granulocyte # (Auto) 0.01 K/uL Sodium Level 140 mmol/L Potassium Level 4.1 mmol/L Chloride Level 108 mmol/L Carbon Dioxide Level 23 mmol/L Anion Gap 9.0 mmol/L Blood Urea Nitrogen 9 mg/dl Creatinine 0.86 mg/dl Est Creatinine Clear Calc Drug Dose 97.5 ml/min Estimated GFR () 106.2 Estimated GFR (Non- 91.6 BUN/Creatinine Ratio 10.7 Random Glucose 73 mg/dl Calcium Level 8.3 mg/dl Total Bilirubin 0.9 mg/dl Direct Bilirubin 0.2 mg/dl Aspartate Amino Transf (AST/SGOT) 56 U/L Alanine Aminotransferase (ALT/SGPT) 208 U/L Alkaline Phosphatase 146 U/L Total Protein 6.8 gm/dl Albumin 3.3 gm/dl Lipase 1305 U/L Assessment and Plan 66yo male - 1. pancreatitis, likely due to gallstones - continue conservative Rx with fluids, bowel rest, pain control. Clinically and biochemically improved. Cont LR but ok to decrease fluid rate to 150cc/hr. Pt drinks etoh but seldomly and not heavily. Triglycerides in 2014 were minimally elevated (just above 150). Calcium normal. Repeat lipase AM. 2. acute cholecystitis - continue IV abx, bowel rest, IVF, pain control. MRCP w/o evidence of obvious choledocholithiasis. Appreciate gen surg consultation. LFTs improved. GI consult appreciated. To the OR in am for lap stefanie and IOC. 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 GI consultation to determine if outpatient endoscopic u/s will be needed and/or additional imaging in future. 4. BPH - cont flomax. 5. FEN - NPO; lytes stable; cont LR but lower to 150cc/hr. 6. DVT proph - heparin TID. 7. GERD - IV PPI for now. tx to med/surg Continued [facility] stay due to: inadequate po fluid intake, multiple IV medications needed Discharge planning: home
[2016-08-25] MEDS: PIPERACILL/TAZOBAC IV 3.375 GM in DEXTROSE 5% 100ML 100 ML IV SCH ×3 (03:43→21:30)
[2016-08-25] MEDS: POTASSIUM CHLORIDE INJ 20 MEQ in LACTATED RINGER'S 1000ML 1,000 ML IV SCH ×3 (03:44→18:34)
[2016-08-25] MEDS: HEPARIN SOD 5000 UNIT/0.5 ML CARP SQ SCH ×3 (05:43→22:07)
[2016-08-25] MEDS ORDERED: NEOSTIGMINE METHYLSULFATE 5 MG/5 ML SYR ONE (07:04)
[2016-08-25] MEDS ORDERED: DEXAMETHASONE SOD INJ 4 MG/ML VIAL ONE (07:04)
[2016-08-25] MEDS ORDERED: GLYCOPYRROLATE INJ 0.2 MG/ML VIAL ONE (07:04)
[2016-08-25] MEDS ORDERED: PROPOFOL IV EMULSION 10 MG/ML 20 ML VIAL IV ONE (07:04)
[2016-08-25] MEDS ORDERED: MIDAZOLAM HCL 1 MG/ML 2ML VIAL ONE (07:04)
[2016-08-25] MEDS ORDERED: LIDOCAINE HCL 2% 2 ML VIAL (20MG/ML) ONE (07:04)
[2016-08-25] MEDS ORDERED: ONDANSETRON INJ 2 MG/ML 2 ML VIAL ONE (07:04)
[2016-08-25] MEDS ORDERED: ROCURONIUM BROMIDE 10 MG/ML 5 ML VIAL ONE (07:04)
[2016-08-25] MEDS ORDERED: FENTANYL CITRATE INJ 50 MCG/1 ML 2 ML VIAL ONE ×2 (07:05→09:02)
[2016-08-25] MEDS ORDERED: CONRAY 60% 50 ML VIAL ONE (07:35)
[2016-08-25] MEDS ORDERED: BUPIVACAINE/EPINEPHRINE 0.5% MPF 1:200,000 30 ML VIAL ONE (07:35)
[2016-08-25] MEDS ORDERED: CEFAZOLIN IV 2,000 MG/60 ML D5W IV ONE (07:46)
--- NOTE | 2016-08-25 07:50 | History & Physical Bridge Note ---
H&P Re-Evaluation Bridge Note: I have examined the patient, reviewed the History & Physical and in the interval since the performance of the History & Physical I have noted the following changes of clinical significance: No changes noted
[2016-08-25 08:09] LABS: BUN/CREATININE RATIO 10.3 (10-20); CALCIUM 8.7 mg/dl (8.5-10.1); CREATININE 0.82 mg/dl (0.60-1.40)
[2016-08-25] MEDS ORDERED: LABETALOL HCL IV 5 MG/ML 20ML IV PRN (09:00)
[2016-08-25] MEDS ORDERED: NALOXONE HCL 0.4 MG/1 ML VIAL/CARP IV PRN (09:00)
[2016-08-25] MEDS ORDERED: HYDROmorphone INJ 1 MG/ML SYR IV PRN (09:00)
[2016-08-25] MEDS ORDERED: ATROPINE SULFATE 0.1 MG/ML 5ML SYR IV PRN (09:00)
[2016-08-25] MEDS ORDERED: ONDANSETRON INJ 2 MG/ML 2 ML VIAL IV PRN (09:00)
[2016-08-25] MEDS ORDERED: FLUMAZENIL 0.1 MG/1 ML 10 ML VIAL IV PRN (09:00)
[2016-08-25] MEDS ORDERED: EpHEDrine SULFATE INJ 50 MG/ML AMP IV PRN (09:00)
[2016-08-25] MEDS ORDERED: PROMETHAZINE HCL INJ 12.5 MG in SODIUM CHLORIDE 0.9% 50ML 50 ML IV PRN (09:00)
--- NOTE | 2016-08-25 09:30 | DIAGNOSTIC IMAGING REPORT ---
INTRAOPERATIVE CHOLANGIOGRAM HISTORY: Post cholecystectomy. FLUOROSCOPY TIME: 13.4 seconds. FINDINGS: Fluoroscopy was provided for an intraoperative cholangiogram status post cholecystectomy. Contrast was injected through the cystic duct remnant. Subtle irregularity of the distal common bile duct. It is possible this relates to spasm. No significant filling defects within the opacified component of the common duct. Flash filling of the pancreatic duct. Contrast extends into the small bowel. There is no intrahepatic bile duct dilatation. IMPRESSION: Fluoroscopy provided for an intraoperative cholangiogram status post cholecystectomy. No filling defects within the common duct. Irregularity of the distal aspect of the common duct possibly relating to muscular spasm although consideration of an ERCP is suggested to exclude a true mucosal lesion Electronically signed by: Desmond Felton M.D. 08/25/2016 9:29 AM Dictated Date/Time: 08/25/2016 9:24 AM
--- NOTE | 2016-08-25 10:00 | Anesthesiology Progress Note ---
Anesthesia Post Op Note Date & Time August 25, 2016 at 10:00 Vital Signs Pain Intensity: 0 Vital Signs Past 12 Hours Date Time Temp Pulse Resp B/P Pulse Ox O2 Delivery O2 Flow Rate FiO2 08/25/16 09:50 36.2 90 16 143/77 96 Room Air 08/25/16 09:40 91 16 146/77 98 Room Air 08/25/16 09:30 91 16 146/77 100 Mask 10 08/25/16 09:20 92 16 140/70 100 Mask 10 08/25/16 09:13 36.5 99 16 140/70 100 Mask 10 08/25/16 07:22 37.2 91 18 163/86 96 Room Air 08/25/16 07:15 36.9 92 18 162/89 94 Room Air 08/25/16 04:00 97 Room Air 08/25/16 03:56 37.0 85 16 148/83 97 Room Air 08/25/16 00:01 95 Room Air 08/24/16 23:55 36.8 87 18 147/75 95 Room Air Notes Mental Status: alert / awake / arousable, participated in evaluation Pt Amnestic to Procedure: Yes Nausea / Vomiting: adequately controlled Pain: adequately controlled Airway Patency, RR, SpO2: stable & adequate BP & HR: stable & adequate Hydration State: stable & adequate Anesthetic Complications: no major complications apparent
--- NOTE | 2016-08-25 10:25 | [facility] Operative Report ---
Operative Report Operative Date August 25, 2016. Pre-Operative Diagnosis Acute Cholecystitis Post-Operative Diagnosis acute cholecystitis Procedure(s) Performed lap stefanie with IOC Surgeon Dr. Harrington Tourist Agent Surgeon(s) LIZA Baldwin Estimated Blood Loss 10 ml Findings acutely inflammed gallbladder. Specimens A. Gallbladder Anesthesia get Complication(s) None Disposition Recovery Room / PACU I attest to the content of the Intraoperative Record and any orders documented therein. Any exceptions are noted below.
[2016-08-25] MEDS: TAMSULOSIN HCL 0.4 MG CAP PO SCH (10:39)
[2016-08-25] MEDS: PANTOprazole INJ 40 MG in SYRINGE 0 ML IV SCH (10:40)
[2016-08-25] MEDS: MoRPHine SULFATE 2 MG/ML CARP IV PRN (10:46)
--- NOTE | 2016-08-25 12:29 | OPERATIVE REPORT ---
DATE OF OPERATION: 08/25/2016 PREOPERATIVE DIAGNOSES: Acute calculus cholecystitis as well as pancreatitis. POSTOPERATIVE DIAGNOSIS: Same. PROCEDURE: Laparoscopic cholecystectomy with intraoperative cholangiogram. SURGEON: Dr. Harrington. [employer] OPERATOR: Gerardo Monsalve PA-C. ESTIMATED BLOOD LOSS: Approximately 10 mL COMPLICATIONS: No immediate. ANESTHESIA: General. The patient tolerated the procedure well. DESCRIPTION OF PROCEDURE: After informed consent was obtained, the patient taken the operating suite, placed in supine position. After successful intubation, the abdomen shaved and sterilely prepped and draped in usual fashion. An infraumbilical incision through his old scar line was made with a #11 blade scalpel and carried down through the soft tissue using electrocautery. The anterior rectus fascia was opened using electrocautery and two #0 Vicryl stay sutures were placed. Peritoneum was elevated with hemostats and incised under direct vision using a Metzenbaum scissor. A finger sweep was performed. A 12 mm Ryann trocar was placed and the abdomen was insufflated to 18 mmHg. Laparoscope was inserted and the abdomen examined 360 degrees. No gross abnormalities were identified. A subxiphoid 5 mm port and 2 right upper quadrant 5 mm ports were placed under direct vision. The patient was placed in reverse Trendelenburg position slightly airplaned to the left. The gallbladder was grasped and elevated superiorly and laterally. There was some acute edema and inflammation around it. I was able to skeletonize the cystic duct without much difficulty. It was a relatively small cystic duct. I was able to clamp it once distally and then transect 60% of it. We introduced a cholangiocath through one of the right upper quadrant trocars, advanced into the cystic duct and blew up the balloon. We then performed a cholangiogram with omnipaque. There was a little bit of narrowing of the distal common bile duct, although could have just been from under distention. I saw no evidence of any filling defects in the common bile duct. Following the cholangiogram, we then removed the cholangiogram catheter and clipped the distal cystic duct twice and then finished transecting it. There was a large cystic artery which was skeletonized, clamped and divided as well. Electrocautery was then used to remove the gallbladder from the gallbladder fossa. It was removed intact and placed into an EndoCatch bag. Several small bleeding points in the fossa were controlled using electrocautery. We irrigated the right upper quadrant. At the end of the procedure, there was adequate hemostasis and no evidence of any bile leaks. I did look quickly around the abdomen and saw no other gross abnormalities. The gallbladder was removed and the trocars were all removed as well. The abdomen was desufflated. The fascia of the camera port was closed using 0 Vicryl in a [id number] fashion. The wounds were all irrigated and closed using 4-0 Monocryl. Marcaine was injected around them for postoperative analgesia and skin glue used as a dressing. Dermabond used as a dressing. The patient was awakened, extubated, and transferred to recovery in stable condition. I attest to the content of the Intraoperative Record and any orders documented therein. Any exceptio ns are noted below.
[2016-08-25] MEDS: MoRPHine SULFATE 4 MG/ML 1 ML CARP\\VIAL IV PRN (12:48)
--- NOTE | 2016-08-25 13:28 | Progress Note ---
Subjective Date of Service: August 25, 2016. Subjective this pt was seen in pacu and doing well, has no complaints except some minor abdominal pain. Problem List Medical Problems: (1) Abdominal pain Status: Acute (2) Acute cholecystitis Status: Acute (3) Fever Status: Acute (4) Pancreatitis Status: Acute Review of Systems Constitutional: No chills, No fever Respiratory: No cough, No sputum Cardiac: No chest pain, No edema Abdomen: + pain, No nausea, No vomiting Male : No dysuria, No urinary frequency Objective Vital Signs Date Time Temp Pulse Resp B/P Pulse Ox O2 Delivery O2 Flow Rate FiO2 08/25/16 07:22 37.2 91 18 163/86 96 Room Air 08/25/16 07:15 36.9 92 18 162/89 94 Room Air 08/25/16 04:00 97 Room Air 08/25/16 03:56 37.0 85 16 148/83 97 Room Air 08/25/16 00:01 95 Room Air 08/24/16 23:55 36.8 87 18 147/75 95 Room Air 08/24/16 20:30 Room Air 08/24/16 19:31 36.9 95 18 154/97 97 Room Air 08/24/16 16:00 99 Room Air 08/24/16 15:31 37.2 82 16 164/90 97 Room Air 08/24/16 12:00 99 Room Air 08/24/16 11:07 36.2 81 19 143/76 96 Room Air Physical Exam General Appearance: WD/WN, + mild distress Neck: supple, no JVD Respiratory/Chest: chest non-tender, lungs clear, normal breath sounds Cardiovascular: regular rate, rhythm, no murmur Abdomen: soft, + abnormal bowel sounds, + tenderness Extremities: no pedal edema, no calf tenderness Laboratory Results Last 24 Hours Test 08/25/16 07:09 08/25/16 07:28 Sodium Level 138 mmol/L Potassium Level 4.0 mmol/L Chloride Level 104 mmol/L Carbon Dioxide Level 23 mmol/L Anion Gap 11.0 mmol/L Blood Urea Nitrogen 8 mg/dl Creatinine 0.82 mg/dl Est Creatinine Clear Calc Drug Dose 101.1 ml/min Estimated GFR () 108.3 Estimated GFR (Non- 93.5 BUN/Creatinine Ratio 10.3 Random Glucose 81 mg/dl Calcium Level 8.7 mg/dl Total Bilirubin 0.8 mg/dl Direct Bilirubin 0.2 mg/dl Aspartate Amino Transf (AST/SGOT) 29 U/L Alanine Aminotransferase (ALT/SGPT) 154 U/L Alkaline Phosphatase 127 U/L Total Protein 7.4 gm/dl Albumin 3.6 gm/dl Lipase 354 U/L Bedside Glucose 84 mg/dl Assessment and Plan 66 M with gall stone pancreatitis, - pancreatitis/ acute cholecystitis - continue IV abx, bowel rest, IVF, pain control. MRCP w/o evidence of obvious choledocholithiasis. Appreciate gen surg consultation. To OR in am for lap stefanie and IOC. 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 GI consultation to determine if outpatient endoscopic u/s will be needed and/or additional imaging in future. BPH - cont flomax. DVT proph - heparin TID. Continued [facility] stay due to: inadequate po fluid intake, multiple IV medications needed Discharge planning: home
--- NOTE | 2016-08-25 16:38 | PROGRESS NOTE ---
DATE: 08/25/2016 SUBJECTIVE: The patient underwent laparoscopic cholecystectomy today. The patient was found to have an inflamed gallbladder. Intraoperative cholangiogram was performed and showed free flow into the small intestine. There may have been a little spasm in the distal duct. There was some flash filling of the pancreatic duct. His lipase has returned to normal today and his bilirubin is also normal. OBJECTIVE: VITAL SIGNS: He is afebrile, blood pressure is 146/74, and pulse is 98. IMPRESSION AND PLAN: The patient has undergone laparoscopic cholecystectomy today without any things in his common bile duct of retained stones. He does have some cysts in his pancreas, seen on previous imaging studies and I would recommend that after discharge, the patient follow up in the office with Dr. Parish to decide whether an endoscopic ultrasound is worth pursuing to further evaluate those cysts. VICKY
[2016-08-26] MEDS: POTASSIUM CHLORIDE INJ 20 MEQ in LACTATED RINGER'S 1000ML 1,000 ML IV SCH ×2 (01:35→07:49)
[2016-08-26 04:05] VITALS: BP 162/90; PULSE 89; TEMP 37.1; O2SAT 95
[2016-08-26] MEDS: PIPERACILL/TAZOBAC IV 3.375 GM in DEXTROSE 5% 100ML 100 ML IV SCH (04:09)
[2016-08-26] MEDS: HEPARIN SOD 5000 UNIT/0.5 ML CARP SQ SCH (06:00)
[2016-08-26 07:47] VITALS: BP 167/92; PULSE 88; TEMP 36.8; O2SAT 94
--- NOTE | 2016-08-26 07:56 | Surgery Progress Note ---
Surgery Progress Note Date of Service August 26, 2016. Subjective Post OP Day: 1 + diet (clears), + feeling well, + pain controlled, No nausea Objective Vital Signs: Date Time Temp Pulse Resp B/P Pulse Ox O2 Delivery O2 Flow Rate FiO2 08/26/16 07:47 36.8 88 19 167/92 94 Room Air 08/26/16 04:05 37.1 89 16 162/90 95 Room Air 08/25/16 23:53 153/84 08/25/16 23:15 Room Air 08/25/16 23:07 36.8 94 16 162/83 94 Room Air 08/25/16 15:40 Room Air 08/25/16 15:22 36.5 98 18 146/74 94 Room Air 08/25/16 13:30 36.7 109 16 157/72 93 Room Air 08/25/16 12:36 37.0 99 18 163/77 95 Room Air 08/25/16 11:28 36.3 91 19 125/69 94 Room Air 08/25/16 11:00 36.5 89 16 143/73 93 Room Air 08/25/16 10:30 Room Air 08/25/16 10:30 37.1 93 16 156/77 92 Room Air 08/25/16 10:30 Room Air 08/25/16 10:00 36.2 90 16 133/79 96 Room Air 08/25/16 09:50 36.2 90 16 143/77 96 Room Air 08/25/16 09:40 91 16 146/77 98 Room Air 08/25/16 09:30 91 16 146/77 100 Mask 10 08/25/16 09:20 92 16 140/70 100 Mask 10 08/25/16 09:13 36.5 99 16 140/70 100 Mask 10 Abdomen: non distended, soft Incision(s): clean, dry Laboratory Results: Results Past 24 Hours Test 08/26/16 06:48 Range/Units Lipase 205 73-393 U/L Assessment & Plan s/p lap stefanie for biliary pancreatitis s lipase normal again this AM advance diet ok for discharge from our standpoint if tolerates diet
[2016-08-26] MEDS ORDERED: HYDR-5688 PO (07:58)
[2016-08-26] MEDS ORDERED: HYDROCODONE/ACETAMOPHEN 5/325MG TAB PO PRN (08:00)
[2016-08-26] MEDS ORDERED: HydrALAZINE HCL 20 MG/ML VIAL IV PRN (08:15)
[2016-08-26] MEDS: TAMSULOSIN HCL 0.4 MG CAP PO SCH (08:54)
[2016-08-26] MEDS ORDERED: TAMSULOSIN HCL 0.4 MG CAP PO SCH (09:00)
[2016-08-26] MEDS ORDERED: RANITIDINE HCL 150 MG TAB PO SCH (09:00)
--- NOTE | 2016-08-26 10:54 | Discharge Instructions ---
Discharge Instructions Date of Service August 26, 2016. Admission Reason for Admission: Acute Cholecystitis, Pancreatitis Discharge Discharge Diagnosis / Problem: cholecystitis, s/p cholecystectomy Discharge Goals Goal(s): Diagnostic testing, Therapeutic intervention Activity Recommendations Activity Limitations: as noted below (as per post op instructions from surgeon) Lifting Limitations: no more than 5 pounds Exercise/Sports Limitations: until after follow-up appointment Shower/Bathe: keep incision dry Driving or Machine Use: resume 3 days after discharge . Current Hospital Diet Patient's current hospital diet: Regular Diet, Low Fat Diet Discharge Diet Recommended Diet: Regular Diet Procedures Procedures Performed: Laparoscopic Cholecystectomy with Intraoperative Cholangiogram Pending Studies Studies pending at discharge: no Medical Emergencies . Who to Call and When: Medical Emergencies: If at any time you feel your situation is an emergency, please call 911 immediately. . Non-Emergent Contact Non-Emergency issues call your: Primary Care Provider, Surgeon Call Non-Emergent contact if: temperature is above 101, your pain is unusual for you . . "Provider Documentation" section prepared by Manny Banegas. . VTE Core Measure Inpt VTE Proph given/why not?: SCD's
--- NOTE | 2016-08-26 10:56 | Anesthesiology Progress Note ---
Anesthesia Post Op Note Date & Time August 26, 2016 at 10:56 Vital Signs Pain Intensity: 0.0 Vital Signs Past 12 Hours Date Time Temp Pulse Resp B/P Pulse Ox O2 Delivery O2 Flow Rate FiO2 08/26/16 07:47 36.8 88 19 167/92 94 Room Air 08/26/16 07:22 Room Air 08/26/16 04:05 37.1 89 16 162/90 95 Room Air 08/25/16 23:53 153/84 08/25/16 23:15 Room Air 08/25/16 23:07 36.8 94 16 162/83 94 Room Air Notes Mental Status: alert / awake / arousable, participated in evaluation Pt Amnestic to Procedure: Yes Nausea / Vomiting: adequately controlled Pain: adequately controlled Airway Patency, RR, SpO2: stable & adequate BP & HR: stable & adequate Hydration State: stable & adequate Anesthetic Complications: no major complications apparent
[2016-08-26 11:07] VITALS: BP 159/86; PULSE 100; TEMP 37.3; O2SAT 94
[2016-08-26 11:27] VITALS: BP 159/86; PULSE 100; TEMP 37.3; O2SAT 94
[2016-08-26] MEDS: PANTOprazole INJ 40 MG in SYRINGE 0 ML IV SCH (11:33)
--- NOTE | 2016-08-26 16:54 | Discharge Summary ---
Discharge Summary Date of Service August 26, 2016. Discharge Summary Admission Date: August 22, 2016 at 23:52 Discharge Date: August 26, 2016 Discharge Disposition: Home Principal Diagnosis: acute cholecystitis, s/p cholecystectomy Immunizations: Have You Had Influenza Vaccine: Yes History of Tetanus Vaccine?: Yes History of Pneumococcal: Yes History of Hepatitis B Vaccine: No Consultations: General Surgery Medication Reconciliation New Medications: Hydrocodone/Acetaminophen 5MG/325MG (Nice 5MG/325MG) Tab 1-2 TABLET PO Q4H PRN for Pain, #30 TAB Continued Medications: Aspirin (Aspirin Ec) 325 Mg Tab 325 MG PO UD PRN for Headache Ranitidine HCl (Zantac) 150 Mg Tab 150 MG PO DAILY Tamsulosin HCl (Tamsulosin HCl) 0.4 Mg Cap 0.4 MG PO DAILY Discharge Exam Review of Systems: Constitutional: No chills, No fever Respiratory: No cough, No sputum Cardiovascular: No chest pain, No orthopnea Abdomen: + pain, No diarrhea, No nausea, No vomiting Genitourinary - Male: No dysuria, No hematuria Physical Exam: General Appearance: WD/WN, no apparent distress Neck: supple, no JVD Respiratory/Chest: chest non-tender, lungs clear, normal breath sounds Cardiovascular: regular rate, rhythm, no murmur Abdomen / GI: normal bowel sounds, soft, + tenderness Extremities: no pedal edema, normal range of motion Hospital Course 66 M with gall stone pancreatitis, - pancreatitis/ acute cholecystitis - OR 08/25 with great results, tolerated advancing diet MRCP w/o evidence of obvious choledocholithiasis. 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 GI consultation feels outpatient endoscopic u/ s. Pt typically follows with DR Kendall BPH - cont flomax. Total Time Spent: Greater than 30 minutes This includes examination of the patient, discharge planning, medication reconciliation, and communication with other providers. Discharge Instructions Please refer to the electronic Patient Visit Report (Discharge Instructions) for additional information.
== END 2016-08-26 11:56 | disposition home or self-care (01) | DRG 418 ==
LOC: ENRESERVTM → ENRESERVDT → CANRESERV → C.EDB 19:29 → C.2T 23:52 → EDBEDREQSVC 23:58 → C.MSN 08-25 10:18
PROVIDERS: ADMIT Hospitalist; ATTEND Internal Medicine
PROC: BF10YZZ Fluoroscopy of Bile Ducts using Other Contrast (ICD-10-PCS; principal; 2016-08-25 08:15)
PROC: 0FT44ZZ Resection of Gallbladder, Percutaneous Endoscopic Approach (ICD-10-PCS; principal; 2016-08-25 08:15)
DX: K85.10 Biliary acute pancreatitis without necrosis or infection (principal); K81.0 Acute cholecystitis; D49.0 Neoplasm of unspecified behavior of digestive system; K21.9 Gastro-esophageal reflux disease without esophagitis; N40.0 Benign prostatic hyperplasia without lower urinary tract symptoms; Z51.81 Encounter for therapeutic drug level monitoring; Z79.899 Other long term (current) drug therapy; Z87.891 Personal history of nicotine dependence; Z82.49 Family history of ischemic heart disease and other diseases of the circulatory system; Z83.3 Family history of diabetes mellitus; Z83.79 Family history of other diseases of the digestive system

== ENCOUNTER → 2016-09-15 | Outpatient (CLI) | payer BC ==
[~2016-09-15] MED LIST changes: +FLM4 PO; +HYDR-5688 PO; -VERA120T8 PO; +ZNTT/150 PO
[2016-09-15 13:26] LABS: ALKALINE PHOSPHATASE 64 U/L (45-117); ALT/SGPT 34 U/L (12-78); AMYLASE 51 U/L (25-115); AST/SGOT 16 U/L (15-37)
== END | disposition home or self-care (01) ==
LOC: C.LAB 11:51
PROVIDERS: ATTEND Surgery
DX: K85.10 Biliary acute pancreatitis without necrosis or infection (principal)

== ENCOUNTER → 2016-12-19 | Outpatient (CLI) | payer BC ==
[2016-12-19 13:20] LABS: BLOOD UREA NITROGEN 15 mg/dl (7-18); CREATININE 0.97 mg/dl (0.60-1.40)
== END | disposition home or self-care (01) ==
LOC: C.LAB 11:15
PROVIDERS: ATTEND Internal Medicine Gastroenterology
DX: K86.2 Cyst of pancreas (principal)

== ENCOUNTER → 2016-12-23 | Outpatient (CLI) | payer BC ==
[~2016-12-23] MED LIST changes: +GADAVIST IV PRN
--- NOTE | 2016-12-23 10:54 | DIAGNOSTIC IMAGING REPORT ---
ABDOMEN COMBO CLINICAL HISTORY: 66 years-old Male presenting with PANCREATIC CYST. TECHNIQUE: Multisequence, multiplanar MR imaging of the abdomen was performed before and after the administration of intravenous contrast. IV contrast: 8 mL of Gadavist. COMPARISON: MRCP from 08/23/[address] from 09/02/2012. FINDINGS: Localizer images: Unremarkable. Tiny well-defined T2 hyperintense nonenhancing lesion in the pancreatic body measuring 3 mm (series 9 image 14). Additional tiny punctate similar-appearing lesions in the pancreatic neck body junction and tail. Few associated small dilated side branches. Mild diffuse pancreatic parenchymal atrophy. No pancreatic ductal dilatation. Patient is status post cholecystectomy. No significant biliary duct dilatation. No evidence of choledocholithiasis. Hepatic fat fraction measures 9.6%, indicative of mild steatosis. Congenital hypoplasia of the medial segments of the left hepatic lobe. No liver lesion. Prominent lobular T2 hyperintense, nonenhancing left renal parapelvic cyst, which demonstrates thin nonenhancing septations (Bosniak 2). No hydronephrosis. Remaining solid and hollow viscera normal. No free fluid. Lung bases clear. No pericardial or pleural effusion. Normal bone marrow signal intensity. IMPRESSION: 1. Tiny cystic lesions in the pancreas measuring up to 3 mm, unchanged since 08/23/2016. As stated before, these could represent small side branch intraductal papillary mucinous neoplasms or sequela of chronic pancreatitis depending on the patient's clinical history. A one-year follow-up contrast enhanced pancreas MRI is recommended from the initial evaluation per the [employer] incidental findings committee recommendations. At which point if stability could be established, this be considered benign and no further follow-up would be warranted. 2. Mild hepatic steatosis. Electronically signed by: Stas Brito M.D. 12/23/2016 10:52 AM Dictated Date/Time: 12/23/2016 10:39 AM
== END | disposition home or self-care (01) ==
LOC: C.MRI 09:20
PROVIDERS: ATTEND Internal Medicine Gastroenterology
DX: K86.2 Cyst of pancreas (principal); K76.0 Fatty (change of) liver, not elsewhere classified